=== PATIENT | female | born 1990 | race Caucasian/White ===

== ENCOUNTER 2016-08-27 10:15 | Emergency (ER) | payer MEDICAID | END 2016-08-27 12:06 | disposition left against medical advice (07) | LOC: UCCORT 10:15 | DX: J11.1 Influenza due to unidentified influenza virus with other respiratory manifestations (principal); Z53.21 Procedure and treatment not carried out due to patient leaving prior to being seen by health care provider ==

== ENCOUNTER 2017-10-06 09:32 | Emergency (ER) | payer OTHER ==
[2017-10-06 10:37] VITALS: BP 123/68
--- NOTE | 2017-10-06 11:03 | UC ---
Respiratory Complaint HPI - HPI Summary HPI Summary: 26 year old female with cough. nonproductive, dry cough x3 days. (+) fatigue. has myalgias 3 days ago that are improved but slightly present . no nausea. had coughed so hard she vomited x 1 and no blood in vomit. no sore throat. 6 mo . no concerns about . 2nd . no diarrhea. (+) hoarse voice and cough not productive. had sinus surgery in the past and does NOT feel like sinus infection. [ End ] - History of Current Complaint Chief Complaint: UCRespiratory Stated Complaint: cough Time Seen by Provider: 10/06/17 10:50 Hx Obtained From: Patient ?: Yes - 6 mo Onset/Duration: Gradual Onset Timing: Constant Severity Initially: Mild Severity Currently: Moderate Pain Intensity: 0 Character: Cough: Nonproductive Aggravating Factors: Nothing Alleviating Factors: Nothing - Allergies/Home Medications Allergies/Adverse Reactions: Allergies Allergy/AdvReac Type Severity Reaction Status Date / Time Penicillins Allergy Intermediate Hives Verified 10/06/17 10:37 Home Medications: Home Medications [id number]/Iron Fum/Folic/Docusate [ 19 Tablet] 1 tab PO DAILY 10/06/17 [ History Confirmed 10/06/17] PMH/Surg Hx/FS Hx/Imm Hx Previously Healthy: Yes - Surgical History Surgical History: Yes Surgery Procedure, Year, and Place: ceptoplasy, R lymph node removed 2016 - Family History Known Family History: Positive: None - Social History Occupation: Employed Full-time Lives: With Family Alcohol Use: None Substance Use Type: None Smoking Status (MU): Never Smoked Tobacco Review of Systems Constitutional: Fatigue Respiratory: Cough Is Patient Immunocompromised?: No All Other Systems Reviewed And Are Negative: Yes Physical Exam Triage Information Reviewed: Yes Appearance: Well-Appearing, No Pain Distress, Well-Nourished Vital Signs: Initial Vital Signs Temp 97.4 F 10/06/17 10:33 Pulse 114 10/06/17 10:33 Resp 20 10/06/17 10:33 BP 123/68 10/06/17 10:33 Pulse Ox 99 10/06/17 10:33 Vital Signs Reviewed: Yes Eye Exam: Normal ENT Exam: Normal ENT: Positive: Nasal congestion, Nasal drainage - clear, Hoarse voice, Sinus tenderness - frontal / maxillary. Negative: TM bulging, TM dull, TM red Dental Exam: Normal Neck exam: Normal Neck: Positive: 1 Respiratory Exam: Normal Cardiovascular Exam: Normal Musculoskeletal Exam: Normal Neurological Exam: Normal Psychological Exam: Normal Skin Exam: Normal UC Diagnostic Evaluation - Laboratory O2 Sat by Pulse Oximetry: 99 Respiratory Course/Dx - Course Course Of Treatment: Discussed supportive care. Appears viral at this time. Discussed having antibiotics available for her sinus infection history but she declined stating she prefers not to take meds while , can start claritin for conhestion as it is cat B. f/u with [facility] - Differential Dx/Diagnosis Differential Diagnosis/HQI/PQRI: Bronchitis, Lower Resp Infection, Sinusitis Provider Diagnoses: URI Discharge - Sign-Out/Discharge Documenting (check all that apply): Discharge - Discharge Plan Condition: Good Disposition: HOME Patient Education Materials: Upper Respiratory Infection (ED) Referrals: JENNIFER Epperson [Primary Care Provider] - 4 Days Additional Instructions: You appear to have a viral infection. Continue with fluid intake and supportive care. For your congestion consider claritin 10 mg daily. - Billing Disposition and Condition Condition: GOOD Disposition: HOME
== END 2017-10-06 11:20 | disposition home or self-care (01) ==
LOC: UCCORT 09:32
DX: J06.9 Acute upper respiratory infection, unspecified (principal)
CPT/HCPCS: 99211; G0463